=== PATIENT | male | born 1980 | race African-American/Black ===

== ENCOUNTER 2020-02-22 17:37 | Emergency (ER) | payer BC, OTHER ==
[2020-02-22] MEDS ORDERED: NA CHLORIDE 0.9% 0 ML ONE (18:12)
--- NOTE | 2020-02-22 18:42 | RAD REPORT ---
EXAM DESCRIPTION: RAD - Chest Single View - 02/22/2020 6:02 pm CLINICAL HISTORY: CONGESTION COMPARISON: None TECHNIQUE: AP portable chest image was obtained 02/22/2020 6:02 pm . FINDINGS: Lungs are clear. Heart and vasculature are normal. No measurable pleural effusion and no p neumothorax. No acute bony abnormality seen. No acute aortic findings suspected. Radiopaque density i n the left upper quadrant of the abdomen may be an external artifact. Acute significance is doubtful. IMPRESSION: No acute cardiopulmonary process.
--- NOTE | 2020-02-22 18:48 | EDPHYS ---
Physician Documentation [facility] Name: Dino Mckinney Jr Age: 39 yrs Sex: Male : 1980 Arrival Date: 02/22/2020 Time: 17:40 Bed 6 Private MD: ED Physician Meghan Pulliam HPI: 02/21 17:56 This 39 yrs old Black Male presents to ER via EMS with complaints of Dizziness. ma2 17:56 Onset: The symptoms/episode began/occurred gradually, 1 hour(s) ago. Associated signs ma2 and symptoms: Pertinent negatives: ataxia, combativeness, diaphoresis, , syncope. Severity of symptoms: At their worst the symptoms were mild in the emergency department the symptoms are unchanged. Severity of symptoms: At their worst the symptoms were in the emergency department the symptoms. The patient has not experienced similar symptoms in the past. The patient has not experienced similar symptoms in the past. symptoms resolved. Historical: - Allergies: 17:45 No Known Allergies; ph - Home Meds: 17:45 None [Active]; ph - PMHx: 17:45 None; ph - PSHx: 17:45 Spleen removed; ph - Immunization history:: Adult Immunizations unknown. - Social history:: Smoking status: Patient denies any tobacco usage or history of. Patient/guardian denies using alcohol, street drugs, The patient lives with family. - Family history:: not pertinent. ROS: 17:56 Constitutional: Negative for fever, chills, and weight loss. ma2 17:56 All other systems are negative. Exam: 17:56 Constitutional: This is a well developed, well nourished patient who is awake, alert, ma2 and in no acute distress. Head/Face: Normocephalic, atraumatic. Eyes: Pupils equal round and reactive to light, extra-ocular motions intact. Lids and lashes normal. Conjunctiva and sclera are non-icteric and not injected. Cornea within normal limits. Periorbital areas with no swelling, redness, or edema. ENT: Nares patent. No nasal discharge, no septal abnormalities noted. Tympanic membranes are normal and external auditory canals are clear. Oropharynx with no redness, swelling, or masses, exudates, or evidence of obstruction, uvula midline. Mucous membranes moist. Neck: Trachea midline, no thyromegaly or masses palpated, and no cervical lymphadenopathy. Supple, full range of motion without nuchal rigidity, or vertebral point tenderness. No Meningismus. Chest/axilla: Normal chest wall appearance and motion. Nontender with no deformity. No lesions are appreciated. Cardiovascular: Regular rate and rhythm with a normal S1 and S2. No gallops, murmurs, or rubs. Normal PMI, no JVD. No pulse deficits. Respiratory: Lungs have equal breath sounds bilaterally, clear to auscultation and percussion. No rales, rhonchi or wheezes noted. No increased work of breathing, no retractions or nasal flaring. Abdomen/GI: Soft, non-tender, with normal bowel sounds. No distension or tympany. No guarding or rebound. No evidence of tenderness throughout. Back: No spinal tenderness. No costovertebral tenderness. Full range of motion. Skin: Warm, dry with normal turgor. Normal color with no rashes, no lesions, and no evidence of cellulitis. MS/ Extremity: Pulses equal, no cyanosis. Neurovascular intact. Full, normal range of motion. Neuro: Awake and alert, GCS 15, oriented to person, place, time, and situation. Cranial nerves II-XII grossly intact. Motor strength 5/5 in all extremities. Sensory grossly intact. Cerebellar exam normal. Normal gait. Vital Signs: 17:41 BP 133 / 85; Pulse 87; Resp 18; Temp 97.3(TE); Pulse Ox 98% on R/A; Weight 114.76 kg; ph Height 5 ft. 11 in. (180.34 cm); 18:48 BP 132 / 90; Pulse 91; Resp 18; Pulse Ox 98% on R/A; ph 19:53 BP 133 / 76; Pulse 85; Resp 17; Temp 98; Pulse Ox 99% ; rr5 17:41 Body Mass Index 35.29 (114.76 kg, 180.34 cm) ph MDM: 17:43 Patient medically screened. ma2 17:56 Differential diagnosis: dehydration, vasovagal attack, viral illness, covid, flue. Data ma2 reviewed: vital signs, nurses notes. Counseling: I had a detailed discussion with the patient and/or guardian regarding: the historical points, exam findings, and any diagnostic results supporting the discharge/admit diagnosis, the presence of at least one elevated blood pressure reading (>120/80) during this emergency department visit, the need for outpatient follow up. Response to treatment: the patient's symptoms have markedly improved after treatment. 02/21 17:46 Order name: COVID-19 [facility] 02/21 17:46 Order name: Flu [facility] 02/21 17:46 Order name: CXR XRAY; Complete Time: 18:44 [facility] 02/21 17:46 Order name: Strep [facility] 02/21 19:25 Order name: Throat Culture [facility] 02/21 17:46 Order name: Labs collected and sent; Complete Time: 18:47 [facility] 02/21 17:46 Order name: Notify Health Dept [phone]/ ; Complete Time: 18:49 [facility] 02/21 17:46 Order name: O2 Per Protocol; Complete Time: 18:47 ma2 Administered Medications: 18:35 Drug: NS 0.9% 2000 ml Route: IV; Rate: 1 bolus; Site: right antecubital; ph 19:50 Follow up: Response: No adverse reaction; IV Status: Completed infusion; IV Intake: rr5 2000ml Disposition: 02/22/20 18:47 Discharged to Home. Impression: Dehydration. - Condition is Stable. - Discharge Instructions: Dehydration, Adult. - Prescriptions for Zofran 4 mg Oral Tablet - take 1 tablet by ORAL route every 12 hours As needed; 6 tablet. Medrol (Pio) 4 mg Oral Tablets, Dose Pack - take 1 tablet by ORAL route as directed - follow package instructions; 1 packet. - Medication Reconciliation Form, Thank You Letter, Antibiotic Education, Prescription Opioid Use form. - Follow up: Private Physician; When: Tomorrow; Reason: Continuance of care. Signatures: Dispatcher [employer] Jessica Luke RN RN Meghan Pulliam MD MD ma2 Dominic Ontiveros RN RN rr5 Corrections: (The following items were deleted from the chart) 20:01 18:47 02/22/2020 18:47 Discharged to Home. Impression: Dehydration. Condition is rr5 Stable. Prescriptions for Zofran 4 mg Oral Tablet - take 1 tablet by ORAL route every 12 hours As needed; 20 tablet, Medrol (Pio) 4 mg Oral Tablets, Dose Pack - take 1 tablet by ORAL route as directed - follow package instructions; 1 packet. and Forms are Medication Reconciliation Form, Thank You Letter, Antibiotic Education, Prescription Opioid Use. Follow up: Private Physician; When: Tomorrow; Reason: Continuance of care. ma2
--- NOTE | 2020-02-22 18:48 | ER ---
Nurse's Notes [facility] Name: Dino Mckinney Jr Age: 39 yrs Sex: Male : 1980 Arrival Date: 02/22/2020 Time: 17:40 Bed 6 Private MD: Diagnosis: Dehydration Presentation: 02/21 17:41 Chief complaint: EMS states: Pt was driving in vehicle on the way to work, after ph entering plant gate suddenly had a "hot flash", experienced a headache, became dizzy and nauseous, reports that he was driving in a vehicle w/ no AC, 20 G to RAC, 4 mg Zofran administered, VSS, initial BP 140/98, HR 103. Coronavirus screen: Patient denies a cough. Patient denies shortness of breath or difficulty breathing. Patient denies measured and/or subjective temperature greater than 100.4F prior to today's visit. Patient denies travel on a cruise ship or to a country the [facility] currently lists as an affected area. Patient denies contact with known and/or suspected case of COVID-19. Ebola Screen: No symptoms or risks identified at this time. Initial Sepsis Screen: Does the patient meet any 2 criteria? No. Patient's initial sepsis screen is negative. Does the patient have a suspected source of infection? No. Patient's initial sepsis screen is negative. Risk Assessment: Do you want to hurt yourself or someone else? Patient reports no desire to harm self or others. Onset of symptoms was February 22, 2020. 17:41 Method Of Arrival: EMS: [facility] 17:41 Acuity: AMBERLY 3 ph Historical: - Allergies: 17:45 No Known Allergies; ph - Home Meds: 17:45 None [Active]; ph - PMHx: 17:45 None; ph - PSHx: 17:45 Spleen removed; ph - Immunization history:: Adult Immunizations unknown. - Social history:: Smoking status: Patient denies any tobacco usage or history of. Patient/guardian denies using alcohol, street drugs, The patient lives with family. - Family history:: not pertinent. Screenin:45 Abuse screen: Denies threats or abuse. Denies injuries from another. Abuse screen: ph Denies threats or abuse. Nutritional screening: No deficits noted. Tuberculosis screening: No symptoms or risk factors identified. Fall Risk None identified. Assessment: 17:46 General: Appears in no apparent distress. comfortable, well groomed, Behavior is calm, ph cooperative, appropriate for age, Denies fever, feeling ill. Pain: Denies pain. Neuro: Level of Consciousness is awake, alert, obeys commands, Oriented to person, place, time, situation, Reports dizziness. Cardiovascular: Reports diaphoresis, lightheadedness, nausea, Denies chest pain, palpitations, shortness of breath, syncope, vomiting, Capillary refill < 3 seconds in bilateral fingers Patient's skin is warm and dry. Respiratory: Airway is patent Respiratory effort is even, unlabored, Respiratory pattern is regular, symmetrical. GI: Reports nausea, Patient currently denies abdominal pain, diarrhea, vomiting. Derm: Skin is intact, is healthy with good turgor, Skin is pink, warm \\T\\ dry. Musculoskeletal: Circulation, motion, and sensation intact. Range of motion: intact in all extremities. 18:47 Reassessment: Patient appears in no apparent distress at this time. Patient and/or ph family updated on plan of care and expected duration. Pain level reassessed. Patient is alert, oriented x 3, equal unlabored respirations, skin warm/dry/pink. Pt reports that dizziness has improved, d/c pending completion of IV fluids. 19:50 Reassessment: Patient appears in no apparent distress at this time. Patient is alert, rr5 oriented x 3, equal unlabored respirations, skin warm/dry/pink. IVF consumed and terminated. discharge instruction given and explained without complaints made Patient states feeling better. Patient states symptoms have improved. Vital Signs: 17:41 BP 133 / 85; Pulse 87; Resp 18; Temp 97.3(TE); Pulse Ox 98% on R/A; Weight 114.76 kg; ph Height 5 ft. 11 in. (180.34 cm); 18:48 BP 132 / 90; Pulse 91; Resp 18; Pulse Ox 98% on R/A; ph 19:53 BP 133 / 76; Pulse 85; Resp 17; Temp 98; Pulse Ox 99% ; rr5 17:41 Body Mass Index 35.29 (114.76 kg, 180.34 cm) ED Course: 17:40 Patient arrived in ED. ph 17:43 Meghan Pulliam MD is Attending Physician. ma2 17:44 Triage completed. ph 17:45 Arm band placed on Patient placed in an exam room, on a stretcher, on pulse oximetry. ph 17:46 Patient has correct armband on for positive identification. Bed in low position. Call ph light in reach. Side rails up X 1. Pulse ox on. NIBP on. Door closed. Noise minimized. Warm blanket given. 18:00 Maintain EMS IV. Dressing intact. Good blood return noted. Site clean \\T\\ dry. Gauge \\T\\ ph site: 20 RAC. 18:02 CXR XRAY In Process Unspecified. EDMS 18:12 Meir Lopez, RN is Primary Nurse. em 18:22 Jessica Velasco, RN is Primary Nurse. ph 18:48 No provider procedures requiring assistance completed. ph 19:54 IV discontinued, intact, bleeding controlled, No redness/swelling at site. Pressure rr5 dressing applied. Administered Medications: 18:35 Drug: NS 0.9% 2000 ml Route: IV; Rate: 1 bolus; Site: right antecubital; ph 19:50 Follow up: Response: No adverse reaction; IV Status: Completed infusion; IV Intake: rr5 2000ml Intake: 19:50 IV: 2000ml; Total: 2000ml. rr5 Outcome: 18:47 Discharge ordered by . ma2 19:54 Discharged to home ambulatory. rr5 19:54 Condition: stable 19:54 Discharge instructions given to patient, Instructed on discharge instructions, follow up and referral plans. medication usage, Demonstrated understanding of instructions, follow-up care, medications, Prescriptions given X 2. 20:01 Patient left the ED. rr5 Addendum: 02/27/2020 15:23 Addendum: COVID-19 Result: Positive result giiven to ED physician to notify pt. h b Physician: Tomer Miller MD. Signatures: Dispatcher [employer] [facility] Meir Lopez, RN JONEL Jessica Velasco, JONEL REMY Josefina Finn RN RN Meghan Pulliam MD MD [facility] Dominic Ontiveros RN RN rr5
[2020-02-22 20:09] VITALS: BP 133/76; TEMP 98; O2SAT 99
== END 2020-02-22 20:01 | disposition home or self-care (01) ==
LOC: ER 17:37
DX: U07.1 COVID-19 (principal); E86.0 Dehydration
CPT/HCPCS: 87070; 87081; 87804 ×2; 71045; 96360; 99284; U0001; J7030

== ENCOUNTER 2023-02-09 04:57 | Emergency (ER) | payer BC ==
[2023-02-09 05:46] LABS: Absolute Lymphocytes (CBC) 4.6 K/uL (0.7-4.9); Hematocrit 37.7 % (39.6-49.0); Lymphocytes % 53.1 % (15.3-44.8); MCV 95.6 fL (80-100); MPV 6.6 fL (7.6-11.3); RBC Red Blood Cell Count 3.95 M/uL (4.33-5.43)
[2023-02-09] MEDS ORDERED: Ringers Lactate 1,000 ML IV ONE ×2 (05:50→07:01)
[2023-02-09 06:05] LABS: ALT/SGPT 38 U/L (16-61); AST/SGOT 25 U/L (15-37); Albumin 3.8 g/dL (3.4-5.0); Alkaline Phosphatase 60 U/L (45-117); BUN Blood Urea Nitrogen 13 mg/dL (7-18); Bicarbonate 25 mEq/L (21-32); Bilirubin Total 0.6 mg/dL (0.2-1.0); Glomerular Filtration Rate 65 ml/min (=/>90); Glucose Level 151 mg/dL (74-106); Magnesium 2.3 mg/dL (1.6-2.4); Potassium 3.9 mEq/L (3.5-5.1); Protein, Total 7.5 g/dL (6.4-8.2); Sodium Level 138 mEq/L (136-145); Troponin High Sensitivity 4.1 pg/mL (<58.9)
[2023-02-09 06:11] LABS: Bilirubin Direct < 0.1 mg/dL (0-0.2); Bilirubin Indirect, Calculated ND mg/dL (0.2-0.8)
--- NOTE | 2023-02-09 06:45 | EDPHYS ---
Physician Documentation [facility] Name: Dino Mckinney Jr Age: 42 yrs Sex: Male : 1980 Arrival Date: 02/09/2023 Time: 04:57 Bed 13 Private MD: ED Physician Justina Monroy HPI: 02/09 05:37 This 42 yrs old Black Male presents to ER via Ambulatory with complaints of Breathing sp3 Difficulty, Headache, Nausea. 05:37 42-year-old male with no significant past medical history presents with generalized sp3 malaise mild chest pressure and mild vertigo. Patient states that he works outside and has been outside a lot over the last several days with only drinking water. He does endorse decreased urine output. Denies any fever, upper respiratory symptoms including sinus drainage, rhinorrhea, sore throat, lymphadenopathy, neck pain, chest pain, shortness of breath, abdominal pain, vomiting or diarrhea, rash, focal neurodeficit, extremity pain, syncope, near syncope, or any other signs or symptoms on ROS at this time.. 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 - Social history:: Smoking status: Patient denies any tobacco usage or history of. Patient/guardian denies using alcohol, street drugs. ROS: 05:38 Constitutional: Negative for fever, chills, and weight loss, Eyes: Negative for injury, sp3 pain, redness, and discharge, ENT: Negative for injury, pain, and discharge, Neck: Negative for injury, pain, and swelling, Respiratory: Negative for shortness of breath, cough, wheezing, and pleuritic chest pain, Abdomen/GI: Negative for abdominal pain, nausea, vomiting, diarrhea, and constipation, Back: Negative for injury and pain, MS/Extremity: Negative for injury and deformity. 05:38 All other systems are negative. Exam: 05:38 Constitutional: This is a well developed, well nourished patient who is awake, alert, sp3 and in no acute distress. Head/Face: Normocephalic, atraumatic. Eyes: Pupils equal round and reactive to light, extra-ocular motions intact. Lids and lashes normal. Conjunctiva and sclera are non-icteric and not injected. Cornea within normal limits. Periorbital areas with no swelling, redness, or edema. ENT: Nares patent. No nasal discharge, no septal abnormalities noted. External auditory canals are clear. Oropharynx with no redness, swelling, or masses, exudates, or evidence of obstruction, uvula midline. Mucous membranes moist. Neck: Trachea midline, no thyromegaly or masses palpated, and no cervical lymphadenopathy. Supple, full range of motion without nuchal rigidity, or vertebral point tenderness. No Meningismus. Chest/axilla: Normal chest wall appearance and motion. Nontender with no deformity. No lesions are appreciated. Cardiovascular: Regular rate and rhythm with a normal S1 and S2. No gallops, murmurs, or rubs. Normal PMI, no JVD. No pulse deficits. Respiratory: Lungs have equal breath sounds bilaterally, clear to auscultation and percussion. No rales, rhonchi or wheezes noted. No increased work of breathing, no retractions or nasal flaring. Abdomen/GI: Soft, non-tender, with normal bowel sounds. No distension or tympany. No guarding or rebound. No evidence of tenderness throughout. Back: No spinal tenderness. No costovertebral tenderness. Full range of motion. Skin: Warm, dry with normal turgor. Normal color with no rashes, no lesions, and no evidence of cellulitis. MS/ Extremity: Pulses equal, no cyanosis. Neurovascular intact. Full, normal range of motion. Neuro: Awake and alert, GCS 15, oriented to person, place, time, and situation. Cranial nerves II-XII grossly intact. Motor strength 5/5 in all extremities. Sensory grossly intact. Cerebellar exam normal. Normal gait. Psych: Awake, alert, with orientation to person, place and time. Behavior, mood, and affect are within normal limits. 05:38 ECG was reviewed by the Attending Physician. EKG demonstrates normal sinus rhythm at 82 bpm with normal intervals except for a MA interval of 212, normal axis, normal QRS, nonspecific inferior T wave changes without reciprocal changes and no evidence of acute ischemia. Vital Signs: 05:13 BP 139 / 96; Pulse 88; Resp 13; Temp 97.8; Pulse Ox 99% ; Weight 111.13 kg; Height 5 j ft. 11 in. ; Pain 0/10; 05:26 BP 139 / 91; Pulse 92; Resp 16 S; Pulse Ox 100% ; ha1 06:15 BP 131 / 88; Pulse 75; Resp 18 S; Pulse Ox 97% on R/A; ha1 07:54 BP 136 / 93; Pulse 65; Resp 16; Pulse Ox 100% on R/A; db 05:13 Body Mass Index 34.17 (111.13 kg, 180.34 cm) [facility] 05:13 Pain Scale: Adult [facility] MDM: 05:18 Patient medically screened. sp3 05:40 Data reviewed: vital signs, nurses notes, lab test result(s), EKG, radiologic studies. sp3 ED course: 42-year-old male with vague symptoms likely due to heat exhaustion. I am not highly suspicious for acute coronary syndrome, sepsis, shock, PE, acidosis, vascular compromise, or any other critical findings at this time. EKG demonstrates no acute ischemia or concerning findings, chest x-ray visualized by me is also without critical findings, laboratory values have been added. We will administer lactated Ringer's 1 L IV and reassess patient after work-up is complete with probable discharge and PCP follow-up with adequate hydration while at work instructions.. 06:43 ED course: Laboratory values reviewed with mild bump in creatinine at 1.3. Patient sp3 feels much better after single liter of lactated Ringer's. We will repeat 1 additional liter and safely discharge patient home to PCP follow-up. I have advised him on proper hydration during heat exposure and advised him to take today off from any heat related work duties.. 02/09 05:31 Order name: Basic Metabolic Panel; Complete Time: 06:30 sp3 02/09 05:31 Order name: CBC with Diff; Complete Time: 06:30 sp3 02/09 05:31 Order name: LFT's; Complete Time: 06:30 sp3 02/09 05:31 Order name: Troponin HS; Complete Time: 06:30 sp3 02/09 05:31 Order name: Magnesium; Complete Time: 06:30 3 02/09 05:19 Order name: CXR XRAY sp3 02/09 05:19 Order name: EKG; Complete Time: 05:20 sp3 02/09 05:19 Order name: EKG - Nurse/Tech; Complete Time: 05:23 sp3 02/09 05:31 Order name: IV Saline Lock; Complete Time: 05:47 sp3 02/09 05:31 Order name: Labs collected and sent; Complete Time: 05:47 sp3 Administered Medications: 05:47 Drug: Lactated Ringers Solution IV 1000 ml Route: IV; Rate: 1000 per protocol; Site: [address]; 07:10 Follow up: Response: No adverse reaction; IV Status: Completed infusion; IV Intake: db 1000ml 07:01 Drug: Lactated Ringers Solution IV 1000 ml Route: IV; Rate: 1000 per protocol; Site: [address]; 08:07 Follow up: Response: No adverse reaction; IV Status: Completed infusion; IV Intake: db 1000ml Disposition Summary: 02/09/23 06:44 Discharge Ordered Location: Home sp3 Condition: Stable sp3 Diagnosis - Heat exhaustion, dehydration sp3 Followup: sp3 - With: Private Physician - When: Upon discharge from the Emergency Department - Reason: Continuance of care Discharge Instructions: - Discharge Summary Sheet sp3 - Dehydration, Adult sp3 Forms: - Medication Reconciliation Form sp3 - Thank You Letter sp3 - Antibiotic Education sp3 - Prescription Opioid Use sp3 - Work release form db - SBAR form db Signatures: Dispatcher [employer] Justina Orozco MD MD sp3 Alecia Klein RN RN Phyllis Oh RN RN [email or web address] Lemons RN db
--- NOTE | 2023-02-09 06:45 | ER ---
Nurse's Notes [facility] Name: Dino Mckinney Jr Age: 42 yrs Sex: Male : 1980 Arrival Date: 02/09/2023 Time: 04:57 Bed 13 Private MD: Diagnosis: Heat exhaustion, dehydration Presentation: 02/09 05:13 Chief complaint: Patient states: SINUS PRESSURE AND CHEST PRESSURE. NO CP. NAUSEA. jj7 STARTED YESTERDAY. Coronavirus screen: At this time, the client does not indicate any symptoms associated with coronavirus-19. Ebola Screen: No symptoms or risks identified at this time. Initial Sepsis Screen: Does the patient meet any 2 criteria? No. Patient's initial sepsis screen is negative. Does the patient have a suspected source of infection? No. Patient's initial sepsis screen is negative. Risk Assessment: Do you want to hurt yourself or someone else? Patient reports no desire to harm self or others. Onset of symptoms was February 08, 2023. 05:13 Method Of Arrival: Ambulatory [facility] 05:13 Acuity: AMBERLY 3 jj7 Triage Assessment: 05:20 General: Appears in no apparent distress. comfortable, Behavior is calm, cooperative, jj7 appropriate for age. Pain: Denies pain. Respiratory: Reports SINUS PRESSURE Onset: The symptoms/episode began/occurred yesterday, the patient has mild shortness of breath. 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 - Social history:: Smoking status: Patient denies any tobacco usage or history of. Patient/guardian denies using alcohol, street drugs. Screenin:21 [facility] ED Fall Risk Assessment (Adult) History of falling in the last 3 months, jj7 including since admission Yes- single mechanical fall (1 pt). [facility] ED Fall Risk Assessment (Adult) Confusion or Disorientation No (0 pts) Intoxicated or Sedated No (0 pts) Impaired Gait No (0 pts) Mobility Assist Device Used No (0 pt) Altered Elimination No (0 pt) Score/Fall Risk Level 0 - 2 = Low Risk Oriented to surroundings, Maintained a safe environment. Abuse screen: Denies threats or abuse. Nutritional screening: No deficits noted. Tuberculosis screening: No symptoms or risk factors identified. Assessment: 05:21 Reassessment: SEE TRIAGE ASSESSMENT. Cardiovascular: No deficits noted. Denies chest jj7 pain. Respiratory: Airway is patent Respiratory effort is even, unlabored. 05:23 General: Appears comfortable, Behavior is calm, cooperative. Pain: Complains of pain in ha1 head Pain does not radiate. Pain currently is 3 out of 10 on a pain scale. Neuro: Level of Consciousness is awake, alert, obeys commands, Oriented to person, place, time, situation. Neuro: Reports headache. Cardiovascular: Heart tones S1 S2 present Patient's skin is warm and dry. Rhythm is sinus rhythm. Respiratory: Airway is patent Trachea midline Respiratory effort is even, unlabored, Respiratory pattern is regular, symmetrical. Respiratory: Reports shortness of breath Breath sounds are clear bilaterally. GI: Abdomen is round non-distended, Reports nausea. Derm: Skin is pink, warm \T\ dry. Musculoskeletal: Circulation, motion, and sensation intact. Range of motion: intact in all extremities. 06:26 Reassessment: Patient and/or family updated on plan of care and expected duration. Pain ha1 level reassessed. Patient is alert, oriented x 3, equal unlabored respirations, skin warm/dry/pink. Patient states symptoms have improved. 07:15 Reassessment: Patient appears in no apparent distress at this time. Patient and/or db family updated on plan of care and expected duration. Pain level reassessed. Patient is alert, oriented x 3, equal unlabored respirations, skin warm/dry/pink. patient discharge pending finishing fluids. Vital Signs: 05:13 BP 139 / 96; Pulse 88; Resp 13; Temp 97.8; Pulse Ox 99% ; Weight 111.13 kg; Height 5 jj7 ft. 11 in. ; Pain 0/10; 05:26 BP 139 / 91; Pulse 92; Resp 16 S; Pulse Ox 100% ; ha1 06:15 BP 131 / 88; Pulse 75; Resp 18 S; Pulse Ox 97% on R/A; ha1 07:54 BP 136 / 93; Pulse 65; Resp 16; Pulse Ox 100% on R/A; db 05:13 Body Mass Index 34.17 (111.13 kg, 180.34 cm) [facility] 05:13 Pain Scale: Adult [facility] ED Course: 05:01 Patient arrived in ED. ja2 05:11 Justina Monroy MD is Attending Physician. sp3 05:20 Triage completed. j7 05:20 Alecia Klein, RN is Primary Nurse. ha1 05:20 Arm band placed on right wrist. Patient placed in an exam room, on a stretcher. 7 05:21 Patient has correct armband on for positive identification. Bed in low position. Call [facility] light in reach. 05:21 No provider procedures requiring assistance completed. 7 05:30 Inserted saline lock: 22 gauge in right antecubital area, using aseptic technique. ha1 Blood collected. 05:41 CXR XRAY In Process Unspecified. EDMS 05:47 Basic Metabolic Panel Sent. ha1 05:47 CBC with Diff Sent. ha1 05:47 LFT's Sent. ha1 05:47 Troponin HS Sent. ha1 07:05 Client placed on continuous cardiac and pulse oximetry monitoring. NIBP monitoring db applied. Warm blanket given. 08:07 IV discontinued, intact, bleeding controlled, No redness/swelling at site. db Administered Medications: 05:47 Drug: Lactated Ringers Solution IV 1000 ml Route: IV; Rate: 1000 per protocol; [facility]; 07:10 Follow up: Response: No adverse reaction; IV Status: Completed infusion; IV Intake: db 1000ml 07:01 Drug: Lactated Ringers Solution IV 1000 ml Route: IV; Rate: 1000 per protocol; [facility] [address] [facility]; 08:07 Follow up: Response: No adverse reaction; IV Status: Completed infusion; IV Intake: db 1000ml Medication: 05:21 VIS not applicable for this client. [facility] Intake: 07:10 IV: 1000ml; Total: 1000ml. db 08:07 IV: 1000ml; Total: 2000ml. db Outcome: 06:44 Discharge ordered by . sp3 08:07 Discharged to home ambulatory. db 08:07 Condition: stable 08:07 Discharge instructions given to patient, Instructed on discharge instructions, follow up and referral plans. 08:08 Patient left the ED. db Signatures: Dispatcher [facility] EDIA Justina Monroy MD MD sp3 Arielle Greenwood Heidy RN RN ha1 Phyllis Atkinson RN RN jj7 Marquita Nelson RN RN db
[2023-02-09 08:20] VITALS: TEMP 97.8
[2023-02-09 08:42] VITALS: BP 136/93; O2SAT 100
--- NOTE | 2023-02-09 12:50 | RAD REPORT ---
EXAM DESCRIPTION: Chest Radiography COMPARISON: None. CLINICAL HISTORY: [facility] MAIN COUGH FINDINGS: A single AP view of the chest demonstrates a normal cardiomediastinal silhouette. No pneumothorax or pleural effusion. No consolidation or pulmonary edema. Osseous structures are intact. IMPRESSION: No acute chest process. Electronically signed by: Hang Solis MD 02/09/2023 6:07 AM CDT Due to temporary technical issues with the PACS/Fluency reporting system, reports are being signed by the in house radiologists without review as a courtesy to insure prompt reporting. The interpreting radiologist is fully responsible for the content of the report.
--- NOTE | 2023-02-10 17:44 | EKG ---
Test Date: 2023-02-09 Test Time: 05:21:59 Mail Weigher: RACHELE MEASUREMENT RESULTS: Intervals: Rate: 82 AK: 212 QRSD: 92 QT: 346 QTc: 404 [place]: P: 52 AK: 212 QRS: 38 T: 18 INTERPRETIVE STATEMENTS: Sinus rhythm with 1st degree AV block Otherwise normal ECG No previous ECG available for comparison Electronically Signed On 02-10-23 17:40:12 CDT by Lm Davila
== END 2023-02-09 08:08 | disposition home or self-care (01) ==
LOC: ER 04:57
DX: T67.5XXA Heat exhaustion, unspecified, initial encounter (principal); E86.0 Dehydration
CPT/HCPCS: 85025; 80048; 36415; 83735; 80076; 84484; 71045; J7120 ×2; 93005